=== PATIENT | female | born 1955 | race Caucasian/White ===

== ENCOUNTER 2024-07-25 08:58 | Day surgery (SDC) | payer MEDICARE, SELFPAY ==
--- NOTE | 2024-07-24 15:51 | PAT.ANESEVAL ---
Pre-Assessment Diagnosis/Proposed Procedure Planned Operative Procedure(s): COLONOSCOPY/EGD Anesthesia History Anesthesia History - postdoctoral scientist: Anesthesia History - postdoctoral scientist Hx Hospitalization No 07/23/24 13:39 Any Problems With Anesthesia Yes: ALLERGIC TO SODIUM 07/23/24 13:39 PENTOTHAL Cholinesterase deficiency No 07/23/24 13:39 You/Your Family Experience No 07/23/24 13:39 fever (hyperthermia) with Relationship Recent Exposure to Contagious Disease Does patient have nerve No 07/23/24 13:39 stimulator Patient instructed to have device shut off --Does patient have Pacemaker or ICD? When Was Last Pacemaker Check QUESTION #4 FULL TEXT: You/Your Family Experience fever (hyperthermia) with Anesthesia Last Oral Intake Last Oral intake: Last Oral Intake NPO since Meds taken in AM with sips of water? Meds patient instructed to take am of surgery PONV PONV - postdoctoral scientist: PONV - postdoctoral scientist Female Yes 07/23/24 13:39 HX of Motion Sickness No 07/23/24 13:39 HX of N/V After Surgery No 07/23/24 13:39 Non-Smoker No 07/23/24 13:39 Duration of Surgery greater No 07/23/24 13:39 than 60 minutes Number of Risk Factors 1 07/23/24 13:39 PONV Score Low Risk 07/23/24 13:39 Respiratory Assessment Respiratory Assessment - postdoctoral scientist: Respiratory Tract Infection Hx - postdoctoral scientist Hx Respiratory Tract Infection No 07/23/24 13:39 STOP Sleep Apnea STOP Sleep Apnea - postdoctoral scientist: STOP Sleep Apnea - postdoctoral scientist Hx Hypertension Yes: CONTROLLED ON MED 07/23/24 13:39 Hx Sleep Apnea No 07/23/24 13:39 CPAP BIPAP Do you snore loudly (louder Yes 07/23/24 13:39 than talking or can be heard Do you often feel tired/ No 07/23/24 13:39 fatigued/ sleepy during daytime? Has anyone observed you stop No 07/23/24 13:39 breathing during sleep? STOP Results Positive 07/23/24 13:39 QUESTION #5 FULL TEXT : Do you snore loudly (louder than talking or can be heard through closed doors)? 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 Specify any problems Hx of Preganancy in last 3 No 07/23/24 13:39 Months Nurse Filling Out Transfusion VCHRISTIN 07/23/24 13:39 & Questions: Date: 07/23/24 07/23/24 13:39 Time: 13:41 07/23/24 13:39 Patient unable to answer at this time (ie. confused, unrespo /Reproduction History /Reproductive History - postdoctoral scientist: /Reproductive Hx- postdoctoral scientist Hx Now No 07/23/24 13:39 Gestational Age (in weeks): EDC: Hx Hx Para Hx Section SAB No 07/23/24 13:39 PFSH Medical History (Updated 07/23/24 @ 13:39 by Shelly Castillo) Wears glasses Wears dentures Post-menopausal Depression Back pain History of IBS Smoker COPD (chronic obstructive pulmonary disease) Shortness of breath on exertion Leg cramps Hypertension History of heart attack Cardiology follow-up encounter Hx of cardiac pacemaker Migraines Irritable bowel GERD (gastroesophageal reflux disease) LBBB (left bundle branch block) Myocardial infarction CAD (coronary artery disease) Ischemic cardiomyopathy Fibromyalgia Osteoarthritis Dyslipidemia Left ventricular dyssynchrony Anemia Osteoporosis Vision problems Seizures UTI (urinary tract infection) Back problem Home Medications ?Medication ?Instructions ?Recorded ?Last Taken ?Type alprazolam 0.5 mg tablet (Xanax) 0.5 mg PO QDAY PRN anxiety 07/01/24 Unknown History calcium citrate 200 mg PO QDAY 07/01/24 Unknown History cyclobenzaprine 5 mg tablet 5 mg PO TID PRN pain 07/01/24 Unknown History gabapentin 400 mg capsule 400 mg PO TID 07/01/24 Unknown History ipratropium bromide 17 2 puff inhalation TID 07/01/24 Unknown History mcg/actuation HFA aerosol inhaler meclizine 25 mg chewable tablet 25 mg PO .Q6HR PRN dizziness 07/01/24 Unknown History (Antivert) multivitamin 1 tab PO QAM 07/01/24 Unknown History nitroglycerin 0.4 mg sublingual 0.4 mg sublingual Q5M PRN chest 07/01/24 Unknown History tablet pain omega 1-zai-iro-fish oil 60 mg-90 1 cap PO DAILY 07/01/24 Unknown History mg-500 mg capsule (Fish Oil) paroxetine HCl 40 mg tablet (Paxil) 40 mg PO QDAY 07/01/24 Unknown History peg 3350-electrolytes 236 240 ml PO Q10M #8,000 mL 07/01/24 Unknown Rx gram-22.74 gram-6.74 gram-5.86 gram solution (Golytely) trazodone 150 mg tablet 150 mg PO QHS 07/01/24 Unknown History varenicline tartrate 1 mg tablet 0.25 mg PO DAILY 07/01/24 Unknown History atorvastatin 80 mg tablet 80 mg PO DAILY 07/23/24 Unknown History carvedilol 3.125 mg tablet 3.125 mg PO BID 07/23/24 Unknown History furosemide 20 mg tablet 20 mg PO DAILY 07/23/24 Unknown History Allergy/AdvReac Type Severity Reaction Status Date / Time thiopental (From sodium Allergy Severe couldn't Verified 07/23/24 13:18 pentothal) wake up tramadol Allergy Intermediate Itching Verified 07/23/24 13:18 acetaminophen (From Panlor AdvReac Intermediate itching Verified 07/23/24 13:18 (hydrocodone-acetamin)) hydrocodone (From Panlor AdvReac Intermediate itching Verified 07/23/24 13:18 (hydrocodone-acetamin)) Surgical History (Updated 07/23/24 @ 13:39 by Shelly Castillo) History of implantable cardiac defibrillator (ICD) Hx of hysterectomy Social History Smoking Status: Current every day smoker tobacco type: cigarettes alcohol intake: never substance use type: former substance user Date of last use: positive for opiates, meth, benzos, and ecstacy in 2017 what type of physical activity do you participate in: none Audit: Pertinent Findings Pertinent Findings EKG Perinent findings: February 06, 2022. Sinus rhythm with occasional atrial paced complexes. Lateral myocardial infarction, age undetermined. ST and inferior T wave abnormalities. (See echo below.) Echo (EF%) pertinent findings: April 20, 2022. EF of 32%. No aortic stenosis is noted. Compared to echo of April 05, 2021 ejection fraction has improved from 26% to 32%. Heart catheterization pertinent findings: August 28, 2018. LAD is normal. Left circumflex is normal. 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 Medical management is suggested. Consult pertinent findings: April 20, 2022. Dr. Jolley. 1. Pacemaker continue remote checks every 3 months. 2. Coronary artery disease-heart cath as above. Medical management only. Additional pertinent findings: Device check January 2023. Normal device function. Recommendation Anesthesia Recommendation Anesthesia recommendation: OPTIMIZED for anesthesia
[2024-07-25] VITALS (10 sets, daily range): BP systolic 106–143; BP diastolic 69–92; PULSE 63–72; RESP 14–18; TEMP 36.2–36.8; O2SAT 91–100; BMI 16.4
[2024-07-25] MEDS: Lactated Ringers 1,000 ML 15 ML IV (09:25)
--- NOTE | 2024-07-25 09:46 | PCM.PRE.AN2 ---
ASA Classification* ASA Classification ASA Classification: 3 Assessment & Plan Anesthesia* Anesthesia Assessment Anesthesia Assessment: Discussed sedation and/or anesthesia options, risks, benefits, and alternatives with patient/parents/legal guardian/POA. Questions invited. The patient/parents/legal guardian/POA seems to understand and agrees to proceed with anesthesia plan. Reviewed the physical assessment, medical history, allergy history and patient home medications list prior to surgery/procedure/anesthetic and documented any changes. Performed airway and anesthesia risk assessments. 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 When Was Last Pacemaker Check QUESTION #4 FULL TEXT: You/Your Family Experience fever (hyperthermia) with Anesthesia Last Oral Intake Last Oral intake: Last Oral Intake NPO since 12:00 07/25/24 09:26 Meds taken in AM with sips of water? Meds patient instructed to coreg, atrovent, gabapentin 07/25/24 09:26 take am of surgery PONV PONV - wrapper operator: PONV - wrapper operator Female Yes 07/23/24 13:39 HX of Motion Sickness No 07/23/24 13:39 HX of N/V After Surgery No 07/23/24 13:39 Non-Smoker No 07/23/24 13:39 Duration of Surgery greater No 07/23/24 13:39 than 60 minutes Number of Risk Factors 1 07/23/24 13:39 PONV Score Low Risk 07/23/24 13:39 Height & Weight Height & Weight: Anesthesia: Height & Weight Height 5 ft 2 in 07/25/24 09:26 Weight: 40.7 kg 07/25/24 09:26 Body Mass Index (BMI) 16.4 07/25/24 09:26 Respiratory Assessment Respiratory Assessment - wrapper operator: Respiratory Tract Infection Hx - wrapper operator Hx Respiratory Tract Infection No 07/23/24 13:39 STOP Sleep Apnea STOP Sleep Apnea - wrapper operator: STOP Sleep Apnea - wrapper operator Hx Hypertension Yes: CONTROLLED ON MED 07/23/24 13:39 Hx Sleep Apnea No 07/23/24 13:39 CPAP BIPAP Do you snore loudly (louder Yes 07/23/24 13:39 than talking or can be heard Do you often feel tired/ No 07/23/24 13:39 fatigued/ sleepy during daytime? Has anyone observed you stop No 07/23/24 13:39 breathing during sleep? STOP Results Positive 07/23/24 13:39 QUESTION #5 FULL TEXT : Do you snore loudly (louder than talking or can be heard through closed doors)? 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 Specify any problems Hx of Preganancy in last 3 No 07/23/24 13:39 Months Nurse Filling Out Transfusion VCHRISTIN 07/23/24 13:39 & Questions: Date: 07/23/24 07/23/24 13:39 Time: 13:41 07/23/24 13:39 Patient unable to answer at this time (ie. confused, unrespo /Reproduction History /Reproductive History - wrapper operator: /Reproductive Hx- wrapper operator Hx Now No 07/23/24 13:39 Gestational Age (in weeks): EDC: Hx Hx Para Hx Section SAB No 07/23/24 13:39 Active Medications Active Medications: Current Medications Generic Name Dose Route Start Last Admin Trade Name Freq PRN Reason Stop Dose Admin Lactated Ringer's 1,000 mls @ 15 mls/hr 07/25/24 09:15 07/25/24 09:25 IV 15 mls/hr .Q48H RYAN Administration PFSH Medical History Wears glasses Wears dentures Post-menopausal Depression Back pain History of IBS Smoker COPD (chronic obstructive pulmonary disease) Shortness of breath on exertion Leg cramps Hypertension History of heart attack Cardiology follow-up encounter Hx of cardiac pacemaker Migraines Irritable bowel GERD (gastroesophageal reflux disease) LBBB (left bundle branch block) Myocardial infarction CAD (coronary artery disease) Ischemic cardiomyopathy Fibromyalgia Osteoarthritis Dyslipidemia Left ventricular dyssynchrony Anemia Osteoporosis Vision problems Seizures UTI (urinary tract infection) Back problem Home Medications ?Medication ?Instructions ?Recorded ?Last Taken ?Type alprazolam 0.5 mg tablet (Xanax) 0.5 mg PO QDAY PRN anxiety 07/01/24 Unknown History calcium citrate 200 mg PO QDAY 07/01/24 Unknown History cyclobenzaprine 5 mg tablet 5 mg PO TID PRN pain 07/01/24 Unknown History gabapentin 400 mg capsule 400 mg PO TID 07/01/24 07/25/24 History ipratropium bromide 17 2 puff inhalation TID 07/01/24 07/25/24 History mcg/actuation HFA aerosol inhaler meclizine 25 mg chewable tablet 25 mg PO .Q6HR PRN dizziness 07/01/24 Unknown History (Antivert) multivitamin 1 tab PO QAM 07/01/24 Unknown History nitroglycerin 0.4 mg sublingual 0.4 mg sublingual Q5M PRN chest 07/01/24 Unknown History tablet pain omega 2-sly-jqc-fish oil 60 mg-90 1 cap PO DAILY 07/01/24 Unknown History mg-500 mg capsule (Fish Oil) paroxetine HCl 40 mg tablet (Paxil) 40 mg PO QDAY 07/01/24 Unknown History peg 3350-electrolytes 236 240 ml PO Q10M #8,000 mL 07/01/24 Unknown Rx gram-22.74 gram-6.74 gram-5.86 gram solution (Golytely) trazodone 150 mg tablet 150 mg PO QHS 07/01/24 Unknown History varenicline tartrate 1 mg tablet 0.25 mg PO DAILY 07/01/24 Unknown History atorvastatin 80 mg tablet 80 mg PO DAILY 07/23/24 Unknown History carvedilol 3.125 mg tablet 3.125 mg PO BID 07/23/24 07/25/24 History furosemide 20 mg tablet 20 mg PO DAILY 07/23/24 Unknown History Allergy/AdvReac Type Severity Reaction Status Date / Time thiopental (From sodium Allergy Severe couldn't Verified 07/25/24 09:23 pentothal) wake up tramadol Allergy Intermediate Itching Verified 07/25/24 09:23 acetaminophen (From Panlor AdvReac Intermediate itching Verified 07/25/24 09:23 (hydrocodone-acetamin)) hydrocodone (From Panlor AdvReac Intermediate itching Verified 07/25/24 09:23 (hydrocodone-acetamin)) Surgical History History of implantable cardiac defibrillator (ICD) Hx of hysterectomy Social History Smoking Status: Current every day smoker tobacco type: cigarettes alcohol intake: never substance use type: former substance user Date of last use: positive for opiates, meth, benzos, and ecstacy in 2017 what type of physical activity do you participate in: none Review of Systems (Anesthesia) ROS Narrative System reviewed and no additional complaints, except as documented.
--- NOTE | 2024-07-25 09:52 | PCM.HP.STD ---
HPI - General General Date of Admission: 07/25/24 Date of Service: 07/25/24 Chief Complaint: Abdominal pain HPI Narrative ELÍAS PAN, is a 69 F who presents abdominal pain EGD/Colon 2017 in [place] - per patient she had colon polyps and EGD was negative - denies any family h/o colon CA 94lbs - seen in office today with her - epigastric pain for years, every day for at least 10 years - pain worsens with PO intake - has eliminated caffeine, greasy foods, spicy, red sauce, garlic - avoiding these foods she still has the pain but not as severe - aching pain, non-radiating, worsens with eating - no change in nausea with PO intake - nausea, has not taken prescribed antiemetic - nausea improves with xanax - reports xanax is for the shakes - does not know why - denies any HB - denies any dysphagia - Printed med list from [facility] appointment on 06/23/2024 - this list is incorrect per patient and - 6 medications that were listed on her [facility] med list which was reportedly updated at her appointment on 06/23/2024 patient and reports she is not taking. - Her medication list has been updated with our office and I have recommended patient and to bring a list of her current medications with dose and frequency of use to every appointment. - denies any weight loss - reports she has gone up to 2 months without passing any stool - x-lax 4 PRN - when she has a BM it is usually very small, very hard - green tea - decaf but stopped due to causing upset stomach - camomile tea now - smoking again - denies any recent EtOH - she is scheduled for a CT ABD [facility] Medical History Wears glasses Wears dentures Post-menopausal Depression Back pain History of IBS Smoker COPD (chronic obstructive pulmonary disease) Shortness of breath on exertion Leg cramps Hypertension History of heart attack Cardiology follow-up encounter Hx of cardiac pacemaker Migraines Irritable bowel GERD (gastroesophageal reflux disease) LBBB (left bundle branch block) Myocardial infarction CAD (coronary artery disease) Ischemic cardiomyopathy Fibromyalgia Osteoarthritis Dyslipidemia Left ventricular dyssynchrony Anemia Osteoporosis Vision problems Seizures UTI (urinary tract infection) Back problem Home Medications ?Medication ?Instructions ?Recorded ?Last Taken ?Type alprazolam 0.5 mg tablet (Xanax) 0.5 mg PO QDAY PRN anxiety 07/01/24 Unknown History calcium citrate 200 mg PO QDAY 07/01/24 Unknown History cyclobenzaprine 5 mg tablet 5 mg PO TID PRN pain 07/01/24 Unknown History gabapentin 400 mg capsule 400 mg PO TID 07/01/24 07/25/24 History ipratropium bromide 17 2 puff inhalation TID 07/01/24 07/25/24 History mcg/actuation HFA aerosol inhaler meclizine 25 mg chewable tablet 25 mg PO .Q6HR PRN dizziness 07/01/24 Unknown History (Antivert) multivitamin 1 tab PO QAM 07/01/24 Unknown History nitroglycerin 0.4 mg sublingual 0.4 mg sublingual Q5M PRN chest 07/01/24 Unknown History tablet pain omega 5-giu-lzv-fish oil 60 mg-90 1 cap PO DAILY 07/01/24 Unknown History mg-500 mg capsule (Fish Oil) paroxetine HCl 40 mg tablet (Paxil) 40 mg PO QDAY 07/01/24 Unknown History peg 3350-electrolytes 236 240 ml PO Q10M #8,000 mL 07/01/24 Unknown Rx gram-22.74 gram-6.74 gram-5.86 gram solution (Golytely) trazodone 150 mg tablet 150 mg PO QHS 07/01/24 Unknown History varenicline tartrate 1 mg tablet 0.25 mg PO DAILY 07/01/24 Unknown History atorvastatin 80 mg tablet 80 mg PO DAILY 07/23/24 Unknown History carvedilol 3.125 mg tablet 3.125 mg PO BID 07/23/24 07/25/24 History furosemide 20 mg tablet 20 mg PO DAILY 07/23/24 Unknown History Allergy/AdvReac Type Severity Reaction Status Date / Time thiopental (From sodium Allergy Severe couldn't Verified 07/25/24 09:23 pentothal) wake up tramadol Allergy Intermediate Itching Verified 07/25/24 09:23 acetaminophen (From Panlor AdvReac Intermediate itching Verified 07/25/24 09:23 (hydrocodone-acetamin)) hydrocodone (From Panlor AdvReac Intermediate itching Verified 07/25/24 09:23 (hydrocodone-acetamin)) Surgical History History of implantable cardiac defibrillator (ICD) Hx of hysterectomy Social History Smoking Status: Current every day smoker tobacco type: cigarettes alcohol intake: never substance use type: former substance user Date of last use: positive for opiates, meth, benzos, and ecstacy in 2017 what type of physical activity do you participate in: none ROS Constitutional Constitutional: Denies fatigue, fever(s), poor appetite, weight gain or weight loss Gastrointestinal Gastrointestinal: Denies belching, bloating, change in bowel habits, change in stool character, chewing difficulty, coffee ground emesis, constipation, cramping, diarrhea, dyspepsia, dysphagia, early satiety, excessive flatus, fecal incontinence, heartburn, hematemesis, hematochezia, hemorrhoids, loose stools, melena, nausea, odynophagia, rectal bleeding, tenesmus, vomiting or weight changes Vital Signs Vital Signs Vital Signs: 07/25/24 09:26 07/25/24 09:26 07/25/24 09:48 Temperature 98.2 F 98.2 F Temperature Source Temporal Pulse Rate 72 72 Respiratory Rate 18 18 Respiratory Pattern Normal Blood Pressure 143/92 H 143/92 H Blood Pressure Mean 109 Blood Pressure Source Monitor Blood Pressure Position Semi-Fowlers Blood Pressure Location Left Arm Pulse Ox 97 97 Oxygen Delivery Method Room Air Weight Weight: 89 lb 11.65 oz Body Mass Index (BMI) 16.4 Physical Exam Const alert, oriented x3, no apparent distress and healthy appearing General Appearance: cooperative GI normal to inspection, nondistended, normoactive bowel sounds, soft to palpation, non-tender and non-distended Percussion: normal to percussion Rectal Exam: deferred Assessment & Plan Assessment/Plan (1) Epigastric pain: PLAN: Assessment and Plan Assessment and Plan (1) Constipation: Status: Acute (2) Epigastric pain: Status: Acute Orders: Orders Abdomen/Pelvis WITH Contrast Today K59.00 - Constipation, unspecified, R10.13 - Epigastric pain EGD 07/18/24 K59.00 - Constipation, unspecified, R10.13 - Epigastric pain Colonoscopy 07/18/24 K59.00 - Constipation, unspecified, R10.13 - Epigastric pain Medications: New pantoprazole take 30 minutes before breakfast every morning 40 mg PO QDAY 90 tabs 3RF peg 3350-electrolytes 236-22.74-6.74 -5.86 gram (Golytely) as directed for two day bowel prep 240 mL PO Q10M 8,000 mL 0RF linaclotide (Linzess) take once daily, 30 minutes before first meal 290 mcg PO QAM 90 caps 0RF Plan 69-year-old female presents for initial consultation with complaints of epigastric abdominal pain and constipation for many years. She denies any weight loss, heartburn or bleeding. She reports experiencing intermittent nausea which improves with as needed Xanax. Recent amylase and lipase were unremarkable. I have ordered a CT with p.o. and IV contrast and scheduled her for bidirectional endoscopies. I have also started her on a daily PPI and Linzess 290 mcg once daily. She will follow-up in the office post procedures. Note: [employer] speech recognition head of store operations software was used to create portions of this document. Sound-alike and misspelled words, as well as other head of store operations errors may be contained in the documentation. Patient Instructions: EGD/Colonoscopy - 2 day GoLytely bowel prep (AICD [employer] / Day Habilitation Supervisor is at [facility]) Start Linzess 290mcg take one capsule daily, 30 minutes before breakfast Start pantoprazole 40mg once daily 30 minutes before breakfast every morning CT A&P with PO and IV contrast Smoking cessation recommended - https://www.cdc.gov/tobacco/about/how-to-quit.html Follow-up in office post procedure
--- NOTE | 2024-07-25 10:00 | EGD_PTH ---
PATIENT: ELÍAS PAN LOC: EN U#:[id number] AGE/SX: 69/F ROOM: RE07/25/[address]: Dr. Jeffy Manzano DO : 1955 BED: DIS: 07/25/2024 SPEC #: [id number] RECD: 07/25/24 13:40 STATUS: SAMMI ZULEMA #: [id number] JORDAN: 07/25/24 10:[address]: Jeffy Manzano DEPT: SURGICAL PATHOLOGY RECD BY: Darryl Vaz ENTERED: 07/25/24 13:54 SP TYPE: EGD BIOPSY NIGEL DR: Dr. Eric Marrufo MD Tissues: A - Gastric mucous membrane B - Ascending colon Procedures: Immunohistochemical Stains Surgery Specimen Level IV HEADER OPERATION: Colonoscopy, EGD with duodenal balloon dilation and biopsy PRE-OP DIAGNOSIS: Constipation, epigastric pain TISSUE SUBMITTED: A- Gastric antrum biopsy, B- Ascending colon polyp MICROSCOPIC DIAGNOSIS A. Stomach, antrum, biopsy: Antral mucosa with chronic inflammation. IHC negative for H pylori organisms. B. Ascending colon, polyp, biopsy: Tubular adenoma (3 fragments). MICROSCOPIC DESCRIPTION Slides are reviewed. All matched controls reacted appropriately. These tests were developed and their performance characteristics determined by [facility]. They may not have been cleared or approved by the U.S. Food and Drug Administration. The FDA has determined that such clearance or approval is not necessary.? The above immunohistochemical/dualISH?markers are ordered and reviewed by the Pathologist. GROSS DESCRIPTION A. Received in formalin in a container labeled with the patient's name, date of , and gastric antrum are multiple velazquez-pink fragments of mucosal tissue measuring 1.5 x 0.8 x 0.3 cm in aggregate. Submitted in toto in A1. B. Received in formalin in a container labeled with the patient's name, date of , and ascending colon polyp are 3 velazquez-pink fragments of mucosal tissue ranging from 0.2 x 0.2 x 0.2 cm to 0.4 x 0.3 x 0.2 cm. Submitted in toto in B1. [facility] 07-25-2024 CPT:[id number]
--- NOTE | 2024-07-25 11:49 | PCM.POST.ANE ---
Anesthesia: Postop Eval I Current Vital Signs Temperature: 97.2 F Pulse Rate: 65 Blood Pressure: 114/70 Respiratory Rate: 14 Pulse Ox: 100 Oxygen Delivery Method: Room Air Assessment Airway patent: Yes Spontaneous unlabored respirations: Yes Mental status: Asleep nausea: No Vomiting: No Anesthesia Complication: No Fluid Hydration Crystalloid volume administer (ml): 900 Total IV fluid infused: 900 Progress Note Anesthesia document: Postop Eval 1 completed: Yes
--- NOTE | 2024-07-25 12:16 | PCM.POSTANE2 ---
Anesthesia Postop Eval I Sum Postop Eval Completion status Anesthesia document: Postop Eval 1 completed: Yes Anesthesia Postop Eval I Summary Anesthesia Postop Eval I Summary: Anesthesia Postop Eval I: Assessment Summary Airway patent Yes 07/25/24 11:49 [email or web address] Spontaneous unlabored Yes 07/25/24 11:49 [email or web address] respirations Mental status Asleep 07/25/24 11:49 [email or web address] nausea No 07/25/24 11:49 [email or web address] Vomiting No 07/25/24 11:49 [email or web address] Anesthesia Postop Eval I: Fluid Summary Crystalloid volume administer 900 07/25/24 11:49 [email or web address] (ml) Colloids volume administered ( ml) Blood Product volume administered (ml) Total IV fluid infused 900 07/25/24 11:49 [email or web address] Anesthesia Postop Eval I: Summary Notes Anesthesia Complication No 07/25/24 11:49 [email or web address] Anesthesia Complication Comment: Post-operative progress note Anesthesia: Postop Eval II Evaluation Mental status: Awake Pain Level: 0 nausea: No Vomiting: No
--- NOTE | 2024-07-25 12:37 | OP.EGD_ITS ---
Patient Name: Dotty Sigala Procedure Date: 07/25/2024 11:44 AM Date of : 1955 Age: 69 Procedure: Upper GI endoscopy Indications: Epigastric abdominal pain Providers: Jeffy Manzano DO Referring MD: Eric Marrufo Medicines: Monitored Anesthesia Care Patient Profile: This is a 69 year old female. Refer to note in patient chart for documentation of history and physical. Patient has symptoms of acute abdominal cramping, acute abdominal distention and acute epigastric abdominal pain. Complications: No immediate complications. Procedure: Pre-Anesthesia Assessment: - Prior to the procedure, a History and Physical was performed, and patient medications and allergies were reviewed. The patient is competent. The risks and benefits of the procedure and the sedation options and risks were discussed with the patient. All questions were answered and informed consent was obtained. Patient identification and proposed procedure were verified by the physician in the pre-procedure area. Mental Status Examination: alert and oriented. Airway Examination: normal oropharyngeal airway and neck mobility. Respiratory Examination: clear to auscultation. CV Examination: normal. Prophylactic Antibiotics: The patient does not require prophylactic antibiotics. Prior Anticoagulants: The patient has taken no anticoagulant or antiplatelet agents except for NSAID medication. ASA Grade Assessment: II - A patient with mild systemic disease. After reviewing the risks and benefits, the patient was deemed in satisfactory condition to undergo the procedure. The anesthesia plan was to use monitored anesthesia care (MAC). Immediately prior to administration of medications, the patient was re-assessed for adequacy to receive sedatives. The heart rate, respiratory rate, oxygen saturations, blood pressure, adequacy of pulmonary ventilation, and response to care were monitored throughout the procedure. The physical status of the patient was re-assessed after the procedure. After obtaining informed consent, the endoscope was passed under direct vision. Throughout the procedure, the patient's blood pressure, pulse, and oxygen saturations were monitored continuously. The colonoscope was introduced through the mouth, and advanced to the third part of the duodenum. Small bowel enteroscopy was deemed necessary. The upper GI endoscopy was accomplished without difficulty. The patient tolerated the procedure well. The Colonoscope was introduced through the mouth, and advanced to the fourth part of the duodenum. Small bowel enteroscopy was deemed necessary. Scope In: 11:05:12 AM Scope Out: 11:17:21 AM Total Procedure Duration Time 0 hours 12 minutes 9 seconds Findings: The examined esophagus was normal. One non-bleeding cratered gastric ulcer with no stigmata of bleeding was found in the gastric antrum. The lesion was 10 mm in largest dimension. Biopsies were taken with a cold forceps for histology. Verification of patient identification for the specimen was done. Estimated blood loss was minimal. A moderate stenosis was found in the prepyloric region of the stomach. This was non-traversed. A TTS dilator was passed through the scope. Dilation with an 18 mm pyloric balloon dilator was performed. The dilation site was examined and showed complete resolution of luminal narrowing. Estimated blood loss was minimal. No gross lesions were noted in the entire examined duodenum. Impression: - Normal esophagus. - Non-bleeding gastric ulcer with no stigmata of bleeding. Biopsied. - Gastric stenosis was found in the prepyloric region of the stomach. Dilated. - No gross lesions in the entire examined duodenum. Recommendation: - Discharge patient to home. - Resume previous diet. - Continue present medications. - Await pathology results. - Pantoprazole 40 mg p.o. twice daily for 3 months and sulcal fate 1 g 3 times daily for 90 days Procedure Code(s): --- Professional --- 00694, Esophagogastroduodenoscopy, flexible, transoral; with dilation of gastric/duodenal stricture(s) (eg, balloon, bougie) 48687, 59,51, Small intestinal endoscopy, enteroscopy beyond second portion of duodenum, not including ileum; with biopsy, single or multiple CPT copyright 2021 [employer]. All rights reserved. The codes documented in this report are preliminary and upon sr community manager review may be revised to meet current compliance requirements. Jeffy Manzano DO 07/25/2024 12:36:56 PM This report has been signed electronically. Number of Addenda: 0 Note Initiated On: 07/25/2024 11:44 AM
--- NOTE | 2024-07-25 12:37 | OP.CCLET_ITS ---
07/25/2024 Eric Marrufo Re : Upper GI endoscopy procedure for Dotty Sigala Dear Yaron This procedure was performed on Thursday, July 25, 2024. My impressions and recommendations are as follows: Impressions : - Normal esophagus. - Non-bleeding gastric ulcer with no stigmata of bleeding. Biopsied. - Gastric stenosis was found in the prepyloric region of the stomach. Dilated. - No gross lesions in the entire examined duodenum. Recommendations : - Discharge patient to home. - Resume previous diet. - Continue present medications. - Await pathology results. - Pantoprazole 40 mg p.o. twice daily for 3 months and sulcal fate 1 g 3 times daily for 90 days My findings are described in the full procedure note, which is enclosed. If I can be of further assistance, please feel free to contact me at . Sincerely, Jeffy Friend, 07/25/2024 12:36:56 PM This report has been signed electronically.
--- NOTE | 2024-07-25 12:39 | OP.COLON_ITS ---
Patient Name: Dotty Sigala Procedure Date: 07/25/2024 11:48 AM Date of : 1955 Age: 69 Procedure: Colonoscopy Indications: Screening for colorectal malignant neoplasm Providers: Jeffy Manzano DO Referring MD: Eric Marrufo Medicines: Monitored Anesthesia Care Patient Profile: This is a 69 year old female. Refer to note in patient chart for documentation of history and physical. Last Colonoscopy: date unknown. Unable to locate last colonoscopy report. Complications: No immediate complications. Procedure: Pre-Anesthesia Assessment: - Prior to the procedure, a History and Physical was performed, and patient medications and allergies were reviewed. The patient is competent. The risks and benefits of the procedure and the sedation options and risks were discussed with the patient. All questions were answered and informed consent was obtained. Patient identification and proposed procedure were verified by the physician in the pre-procedure area. Mental Status Examination: alert and oriented. Airway Examination: normal oropharyngeal airway and neck mobility. Respiratory Examination: clear to auscultation. CV Examination: normal. Prophylactic Antibiotics: The patient does not require prophylactic antibiotics. Prior Anticoagulants: The patient has taken no anticoagulant or antiplatelet agents except for NSAID medication. ASA Grade Assessment: II - A patient with mild systemic disease. After reviewing the risks and benefits, the patient was deemed in satisfactory condition to undergo the procedure. The anesthesia plan was to use monitored anesthesia care (MAC). Immediately prior to administration of medications, the patient was re-assessed for adequacy to receive sedatives. The heart rate, respiratory rate, oxygen saturations, blood pressure, adequacy of pulmonary ventilation, and response to care were monitored throughout the procedure. The physical status of the patient was re-assessed after the procedure. After I obtained informed consent, the scope was passed under direct vision. Throughout the procedure, the patient's blood pressure, pulse, and oxygen saturations were monitored continuously. The Colonoscope was introduced through the anus and advanced to the cecum, identified by appendiceal orifice and ileocecal valve. The colonoscopy was performed without difficulty. The patient tolerated the procedure well. The quality of the bowel preparation was adequate. The terminal ileum, ileocecal valve, appendiceal orifice, and rectum were photographed. The Colonoscope was introduced through the anus and advanced to. Scope In: 11:18:13 AM Scope Withdrawal Time 0 hours 13 minutes 38 seconds Scope Out: 11:37:52 PM Total Procedure Duration Time 12 hours 19 minutes 39 seconds Findings: The perianal and digital rectal examinations were normal. Multiple small and large-mouthed diverticula were found in the recto-sigmoid colon, sigmoid colon, descending colon and transverse colon. Estimated blood loss was minimal. A 5 mm polyp was found in the ascending colon. The polyp was sessile. The polyp was removed with a jumbo cold forceps. Resection and retrieval were complete. Verification of patient identification for the specimen was done. Estimated blood loss was minimal. Moderate rectal prolapse was present. Impression: - Diverticulosis in the recto-sigmoid colon, in the sigmoid colon, in the descending colon and in the transverse colon. - One 5 mm polyp in the ascending colon, removed with a jumbo cold forceps. Resected and retrieved. Recommendation: - Repeat colonoscopy in 5 years for surveillance. - Continue present medications. Procedure Code(s): --- Professional --- 81011, Colonoscopy, flexible; with biopsy, single or multiple CPT copyright 2021 [employer]. All rights reserved. The codes documented in this report are preliminary and upon medical biller/coder review may be revised to meet current compliance requirements. Jeffy Manzano DO 07/25/2024 12:38:28 PM This report has been signed electronically. Number of Addenda: 0 Note Initiated On: 07/25/2024 11:48 AM
--- NOTE | 2024-07-25 12:39 | OP.CCLET_ITS ---
07/25/2024 Eric Marrufo Re : Colonoscopy procedure for Dotty Sigala Dear Yaron This procedure was performed on Thursday, July 25, 2024. My impressions and recommendations are as follows: Impressions : - Diverticulosis in the recto-sigmoid colon, in the sigmoid colon, in the descending colon and in the transverse colon. - One 5 mm polyp in the ascending colon, removed with a jumbo cold forceps. Resected and retrieved. Recommendations : - Repeat colonoscopy in 5 years for surveillance. - Continue present medications. My findings are described in the full procedure note, which is enclosed. If I can be of further assistance, please feel free to contact me at . Sincerely, Jeffy Manzano, 07/25/2024 12:38:28 PM This report has been signed electronically.
== END 2024-07-25 12:48 | disposition home or self-care (01) ==
LOC: EN 09:02 → AC 09:31
PROVIDERS: PCP Family Medicine; Referring Provider Family Medicine; Visit Provider Internal Medicine Gastroenterology
PROC: 0DJD8ZZ Inspection of Lower Intestinal Tract, Via Natural or Artificial Opening Endoscopic (ICD-10-PCS; CPT 45378; principal; 2024-07-25 09:55)
DX: Z12.11 Encounter for screening for malignant neoplasm of colon (principal); J44.9 Chronic obstructive pulmonary disease, unspecified; R10.13 Epigastric pain; K25.9 Gastric ulcer, unspecified as acute or chronic, without hemorrhage or perforation; M79.7 Fibromyalgia; I10 Essential (primary) hypertension; D12.2 Benign neoplasm of ascending colon; K21.9 Gastro-esophageal reflux disease without esophagitis; I25.5 Ischemic cardiomyopathy; I25.10 Atherosclerotic heart disease of native coronary artery without angina pectoris; K62.3 Rectal prolapse; K31.89 Other diseases of stomach and duodenum; F17.210 Nicotine dependence, cigarettes, uncomplicated; K57.30 Diverticulosis of large intestine without perforation or abscess without bleeding; Z79.899 Other long term (current) drug therapy
CPT/HCPCS: 43239; 43245; 45380; 88305; 88342; J2405